=== PATIENT | female | born 1995 | race Caucasian/White ===

== ENCOUNTER 2017-08-04 19:31 | Emergency (ER) | payer OTHER ==
[2017-08-04 20:26] VITALS: BP 123/96; PULSE 100; RESP 18; TEMP 98.7; O2SAT 97
[2017-08-04] MEDS ORDERED: Albuterol 0.083% Inhal Sol (2.5 mg/3 mL) UD ONE ×2 (21:52→23:08)
[2017-08-04] MEDS: Albuterol 0.083% Inhal Sol (2.5 mg/3 mL) UD INH SCH (22:30)
[2017-08-04] MEDS ORDERED: Albuterol 0.083% Inhal Sol (2.5 mg/3 mL) UD IH STA (23:00)
--- NOTE | 2017-08-04 23:18 | C.PDOC ---
History Of Present Illness 22 year old female presents to the ER with a complaint of a subjective fever, cough, chest congestion, and sore throat that began today. Patient states she feels she feels like her asthma is "acting up"; denies chest pain or SOB. Time Seen by Provider: 08/04/17 21:16 Chief Complaint (Nursing): Cough, Cold, Congestion History Per: Patient History/Exam Limitations: no limitations Onset/Duration Of Symptoms: Hrs Current Symptoms Are (Timing): Still Present Location Of Pain: None Sick Contacts (Context): None Associated Symptoms: Fever (Subjective), Sore Throat, Cough, Other (Chest congestion) Ear Symptoms: Bilateral: None Recent travel outside of the [place]: No Past Medical History Reviewed: Historical Data, Nursing Documentation, Vital Signs Vital Signs: Last Vital Signs Temp 98.7 F 08/04/17 20:16 Pulse 100 H 08/04/17 20:16 Resp 18 08/04/17 20:16 BP 123/96 H 08/04/17 20:16 Pulse Ox 97 08/04/17 23:23 - Medical History PMH: Asthma Surgical History: No Surg Hx Family History: States: Unknown Family Hx - Social History Hx Alcohol Use: No Hx Substance Use: No - Immunization History Hx Tetanus Toxoid Vaccination: No Hx Influenza Vaccination: No Hx Pneumococcal Vaccination: No Review Of Systems Constitutional: Positive for: Fever (Subjective) ENT: Positive for: Throat Pain Cardiovascular: Negative for: Chest Pain Respiratory: Positive for: Cough, Other (Chest congestion). Negative for: Shortness of Breath Physical Exam - Physical Exam Appears: Non-toxic Skin: Normal Color, Warm, Dry Head: Atraumatic, Normacephalic Eye(s): bilateral: Normal Inspection Oral Mucosa: Moist Throat: Other (hyperemic) Neck: Normal, Supple Lymphatic: No Adenopathy Chest: Symmetrical, No Tenderness Cardiovascular: Rhythm Regular Respiratory: Decreased Breath Sounds, No Rales, No Rhonchi, Wheezing (Scattered expiratory) Neurological/Psych: Oriented x3, Normal Speech ED Course And Treatment O2 Sat by Pulse Oximetry: 97 (Room air) Pulse Ox Interpretation: Normal - Radiology CXR: Interpreted by Me, Viewed By Me CXR Interpretation: Yes: No Acute Disease. No: Infiltrates Progress Note: CXR and rapid strep ordered, results were negative. Benadryl, prednisone, and nebulizer treatment administered. On reevaluation, patient reports improvement, she is no longer wheezing and has good air entry. Will discharge home with instructions to follow up with PMD for further evaluation. Disposition - Disposition Referrals: Non [facility] Provider, [Primary Care Provider] - Disposition: HOME/ ROUTINE Disposition Time: 23:18 Condition: STABLE Additional Instructions: Please Increase PO fluids Take all meds as directed Follow up with PMD / or in clinic Return to ER if worse Prescriptions: Benzonatate [Tessalon Perles] 100 mg PO TID #20 sgl Cetirizine HCl [Zyrtec] 10 mg PO DAILY #14 capsule Ibuprofen [Motrin] 600 mg PO Q6H #20 tab predniSONE [Prednisone] 40 mg PO DAILY #8 tab Instructions: Upper Respiratory Infection (ED) Forms: [employer] (Mohawk) Print Language: [place] - Clinical Impression Clinical Impression: Upper respiratory infection, Bronchospasm - Scribe Statement The provider has reviewed the documentation as recorded by the Scribhardy Loo All medical record entries made by the Scribe were at my direction and personally dictated by me. I have reviewed the chart and agree that the record accurately reflects my personal performance of the history, physical exam, medical decision making, and the department course for this patient. I have also personally directed, reviewed, and agree with the discharge instructions and disposition.
--- NOTE | 2017-08-05 08:46 | RAD ---
HISTORY: cough, fever COMPARISON: None available. TECHNIQUE: Chest PA and lateral FINDINGS: LUNGS: No focal consolidation. Please note that chest x-ray has limited sensitivity for the detection of pulmonary masses. PLEURA: No significant pleural effusion identified. No definite pneumothorax . CARDIOVASCULAR: The cardiomediastinal silhouette appears within normal limits of size. OSSEOUS STRUCTURES: No acute osseous abnormality identified. VISUALIZED UPPER ABDOMEN: Unremarkable. OTHER FINDINGS: None. IMPRESSION: No focal consolidation, significant pleural effusion, or definite pneumothorax identified.
== END 2017-08-04 23:28 | disposition home or self-care (01) ==
LOC: C.ER 19:31 → SUPCPDRO 19:31 → C.ER 23:28
DX: J06.9 Acute upper respiratory infection, unspecified (principal); J98.01 Acute bronchospasm